=== PATIENT | female | born 1965 | race Caucasian/White ===

== ENCOUNTER 2019-02-05 16:22 | Emergency (ER) | payer SELFPAY ==
[2019-02-05] MEDS ORDERED: ASPIRIN 81 MG TABLET, CHEWABLE PO ONE (17:47)
--- NOTE | 2019-02-05 17:49 | ER Document Report ---
Addendum entered and electronically signed by BRITTNEY GUEVARA NP 02/05/19 18:19: Course - Re-evaluation Re-evalutation: 02/05/19 18:18 Patient returned to the pivot desk concerned that she is wheezing. Patient with faint coarse wheezing to right lower lobe. Nebulizer treatment ordered. - Vital Signs Vital signs: Temp Pulse Resp BP Pulse Ox 98.6 F 102 H 26 H 136/79 H 98 02/05/19 16:31 02/05/19 16:31 02/05/19 16:31 02/05/19 16:31 02/05/19 16:31 - Laboratory Result Diagrams: 02/05/19 18:09 02/05/19 18:09 Original Note: ED Medical Screen (RME) - General Chief Complaint: Chest Pain Stated Complaint: CHEST PAIN Time Seen by Provider: 02/05/19 17:46 Mode of Arrival: Ambulatory Information source: Patient Notes: Patient complains of chest pain that she describes as a burning sensation that started around 3 PM today with nausea dizziness and cough. Patient states she feels as though she has been having an asthma exacerbation although is not presently having any wheezing. Patient has a history of diabetes asthma and thyroid disorder but is not on any medications to treat this. I have greeted and performed a rapid initial assessment of this patient. A comprehensive ED assessment and evaluation of the patient, analysis of test results and completion of the medical decision making process will be conducted by additional ED providers. - Related Data Allergies/Adverse Reactions: No Known Allergies Allergy (Verified 02/05/19 16:27) Physical Exam - Vital signs Vitals: Temp Pulse Resp BP Pulse Ox 98.6 F 102 H 26 H 136/79 H 98 02/05/19 16:31 02/05/19 16:31 02/05/19 16:31 02/05/19 16:31 02/05/19 16:31 - Respiratory Respiratory status: No respiratory distress Breath sounds: Normal. No: Wheezing Course - Vital Signs Vital signs: Temp Pulse Resp BP Pulse Ox 98.6 F 102 H 26 H 136/79 H 98 02/05/19 16:31 02/05/19 16:31 02/05/19 16:31 02/05/19 16:31 02/05/19 16:31
[2019-02-05] MEDS ORDERED: IPRATROPIUM/ALBUTEROL 0.5-2.5 MG/3 ML AMPUL NEB ONE (18:18)
[2019-02-05] MEDS ORDERED: PREDNISONE 20 MG TABLET PO ONE (18:18)
--- NOTE | 2019-02-05 18:24 | RADIOLOGY REPORT (SQ) ---
EXAM DESCRIPTION: CHEST 2 VIEWS COMPLETED DATE/TIME: 02/05/2019 6:14 pm REASON FOR STUDY: cp, sob COMPARISON: None. EXAM PARAMETERS: NUMBER OF VIEWS: two views TECHNIQUE: Digital Frontal and Lateral radiographic views of the chest acquired. RADIATION DOSE: NA LIMITATIONS: none FINDINGS: LUNGS AND PLEURA: No opacities, masses or pneumothorax. No pleural effusion. MEDIASTINUM AND HILAR STRUCTURES: No masses or contour abnormalities. HEART AND VASCULAR STRUCTURES: Heart normal size. No evidence for failure. BONES: No acute findings. HARDWARE: None in the chest. OTHER: No other significant finding. IMPRESSION: NO ACUTE RADIOGRAPHIC FINDING IN THE CHEST. TECHNICAL DOCUMENTATION: JOB ID: [id number] [employer]- All Rights Reserved Reading location - IP/workstation name: [email or web address]
[2019-02-05 18:30] LABS: ABSOLUTE BASOPHILS # (AUTO) 0.1 10^3/uL (0.0-0.2); ABSOLUTE EOSINOPHILS # (AUTO) 0.5 10^3/uL (0.0-0.6); ABSOLUTE MONOCYTES (AUTO) 0.5 10^3/uL (0.1-1.4); ABSOLUTE NEUT (AUTO) 4.5 10^3/uL (1.7-8.2); BASOPHILS % (AUTO) 0.9 % (0-2); EOSINOPHILS % (AUTO) 5.2 % (0-6); HEMATOCRIT 37.3 % (36.0-47.0); HEMOGLOBIN 12.7 g/dL (12.0-15.5); LYMPHOCYTES % (AUTO) 41.5 % (13-45); MEAN CORPUSCULAR HEMOGLOBIN 31.3 pg (27.0-33.4); MEAN CORPUSCULAR HGB CONC 33.9 g/dL (32.0-36.0); MEAN CORPUSCULAR VOLUME 92 fl (80-97); MONOCYTES % (AUTO) 5.3 % (3-13); PLATELET COUNT 384 10^3/uL (150-450); RED BLOOD COUNT 4.05 10^6/uL (3.72-5.28); RED CELL DISTRIBUTION WIDTH 13.3 % (11.5-14.0); SEGMENTED NEUTROPHILS % (AUTO) 47.1 % (42-78); TOTAL CELLS COUNTED % (AUTO) 100 %; WHITE BLOOD COUNT 9.6 10^3/uL (4.0-10.5)
[2019-02-05 18:48] LABS: ALANINE AMINOTRANSFERASE 29 U/L (9-52); ALBUMIN 4.2 g/dL (3.5-5.0); ALKALINE PHOSPHATASE 122 U/L (38-126); ANION GAP 10 (5-19); ASPARTATE AMINO TRANSFERASE 20 U/L (14-36); BILIRUBIN,DIRECT 0.3 mg/dL (0.0-0.4); BILIRUBIN,TOTAL 0.4 mg/dL (0.2-1.3); BLOOD UREA NITROGEN 19 mg/dL (7-20); CALCIUM 9.8 mg/dL (8.4-10.2); CARBON DIOXIDE 31 mmol/L (22-30); CHLORIDE 100 mmol/L (98-107); GLUCOSE 161 mg/dL (75-110); POTASSIUM 4.4 mmol/L (3.6-5.0); SODIUM 140.7 mmol/L (137-145); TOTAL PROTEIN 7.1 g/dL (6.3-8.2)
[2019-02-05 19:06] LABS: FREE T4 (FREE THYROXINE) 0.36 ng/dL (0.78-2.19)
[2019-02-05 19:07] LABS: FREE T3 2.98 pg/mL (2.77-5.27)
[2019-02-05 19:33] LABS: THYROID STIMULATING HORMONE 64.3 uIU/mL (0.47-4.68)
[2019-02-05] MEDS ORDERED: ALBUTEROL SULFATE HFA (90 MCG/PUFF) 200 PUFF/8.5 GM MDI IH ONE (21:04)
--- NOTE | 2019-02-05 21:08 | ER Document Report ---
ED General - General Chief Complaint: Shortness Of Breath Stated Complaint: Asthma exacerbation Time Seen by Provider: 02/05/19 17:46 Mode of Arrival: Ambulatory Notes: Patient is a 53-year-old female with a past medical history of asthma, hypothyroidism, currently off all medications due to lack of medical insurance who presents complaining of shortness of breath, wheezing and chest burning. Patient states that earlier today she began to feel like she was having an asthma exacerbation but did not have any other inhalers available to her. She states that she was coughing and felt very tight and short of breath. Symptoms started gradually, worsened gradually over the course of several hours. Nothing improves her symptoms and no obvious trigger. States that she had an associated chest burning which she always has when she is having an asthma exacerbation is not new or different today. She does not have a local primary care physician. Denies fever or sputum production. - Related Data Allergies/Adverse Reactions: No Known Allergies Allergy (Verified 02/05/19 16:27) Past Medical History - General Information source: Patient - Social History Smoking Status: Never Smoker Chew tobacco use (# tins/day): No Frequency of alcohol use: None Drug Abuse: None Lives with: Spouse/Significant other Family History: Reviewed & Not Pertinent Patient has suicidal ideation: No Patient has homicidal ideation: No Renal/ Medical History: Denies: Hx Peritoneal Dialysis Review of Systems - Review of Systems Notes: Constitutional: Negative for fever. HENT: Negative for sore throat. Eyes: Negative for visual changes. Cardiovascular: Positive for chest burning Respiratory: Positive for shortness of breath and wheezing Gastrointestinal: Negative for abdominal pain, vomiting or diarrhea. Genitourinary: Negative for dysuria. Musculoskeletal: Negative for back pain. Skin: Negative for rash. Neurological: Negative for headaches, weakness or numbness. 10 point ROS negative except as marked above and in HPI. Physical Exam - Vital signs Vitals: Temp Pulse Resp BP Pulse Ox 98.6 F 102 H 26 H 136/79 H 98 02/05/19 16:31 02/05/19 16:31 02/05/19 16:31 02/05/19 16:31 02/05/19 16:31 Interpretation: Tachycardic Notes: PHYSICAL EXAMINATION: GENERAL: Well-appearing, well-nourished and in no acute distress. HEAD: Atraumatic, normocephalic. EYES: Pupils equal round and reactive to light, extraocular movements intact, sclera anicteric, conjunctiva are normal. ENT: nares patent, oropharynx clear without exudates. Moist mucous membranes. NECK: Normal range of motion, supple without lymphadenopathy LUNGS: Breath sounds clear to auscultation bilaterally and equal. Faint expiratory wheezing in all lung hernandez HEART: Regular rate and rhythm without murmurs ABDOMEN: Soft, nontender, normoactive bowel sounds. No guarding, no rebound. No masses appreciated. EXTREMITIES: Normal range of motion, no pitting or edema. No cyanosis. NEUROLOGICAL: No focal neurological deficits. Moves all extremities spontaneously and on command. PSYCH: Normal mood, normal affect. SKIN: Warm, Dry, normal turgor, no rashes or lesions noted. Course - Re-evaluation Re-evalutation: 02/05/19 21:05 Patient presents with a mild exacerbation of their baseline asthma. Mild wheezing at time of presentation but vitals do not show significant hypoxemia or tachypnea. No retractions. Patient did clinically improve after receiving nebulizers here in the emergency department. Chest x-ray without evidence of an acute pneumonia. Patient able to ambulate without any respiratory distress. Based on patient's overall reassuring assessment, I believe they are stable for outpatient management with steroids. I do not suspect an acute alternative pathology at this time based on history and exam including acute pulmonary embolus, ACS, pneumothorax, or aortic dissection. Patient did report in triage that she had chest burning which she states she always gets when she feels like she needs an inhaler and is clear to state that this is not a concern now that her wheezing has resolved after receiving nebulizer. She is very clear to state that she always gets this burning chest sensation when she begins to get tight and needs a nebulizer treatment which she currently does not have available due to lack of insurance and extra resources at home. At this time will discharge with return precautions and follow-up recommendations. Verbal discharge instructions given a the bedside and opportunity for questions given. Medication warnings reviewed. Patient is in agreement with this plan and has verbalized understanding of return precautions and the need for primary care follow-up in the next 24-72 hours. - Vital Signs Vital signs: Temp Pulse Resp BP Pulse Ox 97.7 F 87 18 118/63 100 02/05/19 21:29 02/05/19 21:29 02/05/19 21:29 02/05/19 21:29 02/05/19 21:29 - Laboratory Result Diagrams: 02/05/19 18:09 02/05/19 18:09 Laboratory results interpreted by me: 02/05/19 02/05/19 18:09 18:09 Carbon Dioxide 31 H Glucose 161 H TSH 64.30 H Free T4 0.36 L - Diagnostic Test Radiology reviewed: Image reviewed, Reports reviewed Radiology results interpreted by me: 02/05/19 21:05 Chest x-ray: No acute infiltrate or pneumothorax - EKG Interpretation by Me Additional EKG results interpreted by me: 02/05/19 21:06 Sinus rhythm, rate 99. No ST elevations or depressions. QTC 437. Discharge - Discharge Clinical Impression: Shortness of breath Asthma exacerbation Qualifiers: Asthma severity: mild Asthma persistence: intermittent Qualified Code(s): J45.21 - Mild intermittent asthma with (acute) exacerbation Condition: Good Disposition: HOME, SELF-CARE Additional Instructions: You were seen for an asthma exacerbation. Your symptoms improved with treatment here in the emergency department. However, it is very important that you return to the emergency department immediately if you began to have worsening difficulty breathing that does not respond to your normal home nebulizers. You are also being sent home on a five-day course of steroids that you should start taking tomorrow. Please also follow closely with your primary care physician. you should also return to emergency department if you develop fever greater than 101, persistent cough, persistent vomiting, pass out, or any other symptoms that are concerning to you. Prescriptions: Ipratropium/Albuterol Sulfate [Duoneb 3 ml Ampul] 3 ml NEB [id number] PRN #30 vial.neb PRN Reason: Prednisone [Deltasone 20 mg Tablet] 2 tab PO DAILY 5 Days tablet
[2019-02-05 21:31] VITALS: BP 118/63
--- NOTE | 2019-02-05 22:32 | EKG REPORT ---
SEVERITY:- NORMAL ECG - SINUS RHYTHM : Confirmed by: Mare Alexandre MD 05-Feb-2019 22:32:06
== END 2019-02-05 21:31 | disposition home or self-care (01) ==
LOC: ER 16:22
DX: R06.02 Shortness of breath (principal); J45.21 Mild intermittent asthma with (acute) exacerbation; R07.89 Other chest pain
CPT/HCPCS: 93005; 94640; 99285; 36415; 84439; 84443; 85025; 80053; 84484; 84481; 71046; 93010; J7512; J3490; J7620